=== PATIENT | male | born 1995 | race Caucasian/White ===

== ENCOUNTER 2018-07-16 07:28 | Emergency (ER) | payer MEDICAID, SELFPAY ==
[2018-07-16 07:32] VITALS: BP 163/82; PULSE 89; RESP 18; TEMP 37; O2SAT 99
--- NOTE | 2018-07-16 07:39 | DI.CT_ITS ---
SYMPTOM/DIAGNOSIS: R/O LT PERITONSILLAR ABSCESS NECK CT: The study was carried out according to the usual protocol with an intravenous administration of 100.1 ml intravenous contrast. There is some prominence of the tonsils. The left tonsil appearing somewhat larger than it's right counterpart. There is no evidence of a discrete abscess. There is no evidence of a pharyngeal or retropharyngeal mass. The larynx, epiglottis and aryepiglottic folds are normal. There is no evidence of adenopathy. No bony abnormality is apparent. The neck is flexed presumably secondary to spasm. No intrinsic bony abnormality is seen. SUMMARY: Findings which would be consistent with bilateral tonsillitis. There is no evidence of a localized mass or fluid collection and nothing specific to suggest a peritonsillar abscess.
--- NOTE | 2018-07-16 07:41 | W.ED.GENAD ---
Discharge Plan Disposition Patient Disposition: STILL A PATIENT Condition: Stable Discharge Details Chief Complaint: Sorethroat Clinical Impression: Throat pain Primary Care Provider: Miguelina Cox V ED Provider: Willy Lane Home Meds and New Rx's Prescriptions: New amoxicillin-pot clavulanate [Augmentin] 875-125 mg tablet 1 tab PO BID Qty: 14 RF: 0 Continued Suboxone 12-3 mg Film RF: 0 Discharge Instructions Additional Instructions: Your cat scan did not show any fluid collection at this time requiring drainage if you have discomfort you can take 1000mg tylenol and 600mg ibuprofen every 6 hours as needed if not better by the end of the week follow up with your primary care provider if you are unable to swallow liquids or have difficulty breathing return to the emergency department Medical Decision Making <Pradip Pacheco DO - Last Filed: 07/16/18 07:50> This is a pleasant 22-year-old male who presents for evaluation of sore throat for the last 12-18 hours. He has no fever, but does admit to chills, left-sided jaw trismus, and notable pain with swallowing. Physical exam demonstrates an enlarged left peritonsillar space, as well as bilaterally enlarged tonsils. Tonsils are not touching. Uvula is minimally deviated to the right, no signs of airway compromise though, patient is controlling secretions well, shows no evidence of significant respiratory or oropharyngeal compromise. Palpation of the slightly enlarged area demonstrates a soft but tender area. No tenseness, or significant fluctuance. Differential includes a peritonsillar abscess versus a phlegmon. We will give the patient Toradol and Tylenol here as well as Augmentin. Due to the size of the mass, and the mild deviation of the uvula we will get a CT scan to further differentiate between phlegmon and abscess. Currently the patient is hemodynamically stable. Case will be signed out to my colleague Dr. Lane. I feel that if there is no evidence of significant abscess patient can most likely be discharged home with close follow-up with ENT and his PCP. <Willy Lane MD - Last Filed: 07/16/18 09:20> Imaging Data Radiologic Study: Attestation: I personally reviewed and interpreted this imaging study as follows: Imaging: CT Scan Radiologist's impression: no abscess or phelgmon or acute emergent findings per Dr. Price HPI <Pradip Pacheco DO - Last Filed: 07/16/18 07:50> General Date/Time Provider Initiated Documentation: 07/16/18 07:39. HPI Narrative: This is a pleasant 22-year-old male with no significant past medical history except for Suboxone use who presents today for sore throat. Patient states that sore throat began last night, notably worsened this morning. He denies any fevers but does admit to chills. He does have some associated trismus, and pain notably in the left side of his throat. Does have some pain with swallowing but denies any significant difficulty swallowing. He does admit to a very mild headache, but denies any significant neck pain, neck stiffness, stiffness in the back of his head. Patient denies any symptoms of cough, chest pain, shortness of breath. He denies any IV or illicit drug use. He denies any surgeries. He denies any other complaints at this time. No other aggravating or modifying factors. Related Data Home Medications Medication Instructions Recorded Confirmed Suboxone 07/16/18 amoxicillin-pot clavulanate 1 tab PO BID #14 tab 07/16/18 [Augmentin] Previous Rx's Medication Instructions Recorded amoxicillin-pot clavulanate 1 tab PO BID #14 tab 07/16/18 [Augmentin] Allergies Allergy/AdvReac Type Severity Reaction Status Date / Time No Known Drug Allergies Allergy Unverified 07/16/18 07:41 General Stated Complaint: Sorethroat CELESTINO: 4 Review of Systems <Pradip Pacheco DO - Last Filed: 07/16/18 07:50> Review of Systems All systems reviewed & are unremarkable except as noted in HPI and below PFSH <Pradip Pacheco DO - Last Filed: 07/16/18 07:50> Medical History Depression Family History Mother No problems noted. Father Depression Sister No problems noted. Brother No problems noted. Brother No problems noted. Social History Smoking/Tobacco Use Status: Current every day Exam <Pradip Pacheco DO - Last Filed: 07/16/18 07:50> Narrative Exam Narrative: 1.Const: Well-nourished, Well-developed, appearing stated age 2.Eyes: PERRL, no conjunctival injection, and symmetrical lids. 3.ENT: Atraumatic external nose and ears. Moist MM. Neck: Symmetric, trachea midline, No thyromegaly. Posterior oropharynx demonstrates notable erythema, mild to moderate swelling in the left posterior oropharynx. Mild deviation of the uvula to the right, palpation of this area in the back left demonstrates no significant fluctuance that I can appreciate, and certainly it is not firm or tense. No significant tonsillar exudates. Tonsils are enlarged though. Mild anterior cervical lymphadenopathy. Tympanic membranes are edward and pearly. No evidence of effusion. Patient demonstrates good movement of cervical neck. There is no nuchal rigidity, no nuchal tenderness. Patient is able to flex the neck without any difficulty or significant pain. Negative Kernig's and Brudzinski sign. 4.CVS: +S1/S2, No murmurs or gallops. Peripheral pulses 2+ and equal in all extremities. Brisk capillary refill in all extremities. 5.RESP: Unlabored respiratory effort. Clear to auscultation bilaterally. No wheezes rales or rhonchi 6.GI: Soft, Nontender/Nondistended, No hepatosplenomegaly. No guarding or rebound. 7.MSK: Normocephalic/Atraumatic, Extremities w/o deformity or ttp No cyanosis or clubbing, Normal movement of all extremities 8.Skin: Warm, Dry. No rashes or lesions. 9.Neuro: post closing specialist II-XII grossly intact. Sensation grossly intact, no focal neurologic deficits. 10.Psych: (AAO) x3. Appropriate mood and affect Course <Pradip Pacheco, - Last Filed: 07/16/18 07:50> Vital Signs Temperature 37.0 C 07/16/18 07:32 Pulse 89 07/16/18 07:32 Respiratory Rate 18 07/16/18 07:32 Blood Pressure 163/82 H 07/16/18 07:32 Pulse Oximetry 99 07/16/18 07:32 Temperature 37.0 C 07/16/18 07:32 Pulse 89 07/16/18 07:32 Respiratory Rate 18 07/16/18 07:32 Respiratory Effort 07/16/18 07:39 Blood Pressure 163/82 H 07/16/18 07:32 Blood Pressure Position Sitting 07/16/18 07:32 Pulse Oximetry 99 07/16/18 07:32 Pain Level 7 07/16/18 07:32 Sign Out <Pradip Pacheco DO - Last Filed: 07/16/18 07:50> Sign Out Data: Sign Out Comment: Pending CT results Last updated by Pradip Pacheco DO at 07/16/18 07:56 Post-Handoff Eval: pt remains stable without stridor or drooling speaking in full setnences. CT per Dr. Price shows no abscess or phelgmon. He prefers f/u with pcp and advised return here if worsens
[2018-07-16] MEDS: Acetaminophen 500 MG TAB 1000 MG PO (07:46)
[2018-07-16] MEDS: Amoxicillin 875/Clav. 125 TAB PO (07:46)
[2018-07-16] MEDS: Ketorolac 30 MG/ML VIAL IVP (07:46)
[2018-07-16] MEDS: Omnipaque 350 MG/ML 100 ML BTL IJ (08:21)
[2018-07-16 09:25] VITALS: BP 148/73; PULSE 72; RESP 18; TEMP 36.7; O2SAT 98
== END 2018-07-16 09:23 | disposition still patient (30) ==
PROVIDERS: Emergency Provider Emergency Medicine; PCP Pediatrics
DX: F60.3 Borderline personality disorder (principal); R45.851 Suicidal ideations; R45.850 Homicidal ideations
CPT/HCPCS: 36415; 70491; 99285; 87081; 99284; J1885; J3490

== ENCOUNTER 2018-11-02 15:42 | Emergency (ER) | payer MEDICAID, SELFPAY ==
[2018-11-02 15:45] VITALS: BP 137/75; PULSE 61; RESP 15; TEMP 36.8; O2SAT 95
--- NOTE | 2018-11-02 16:03 | W.ED.GENAD ---
Discharge Plan Disposition Patient Disposition: HOME Condition: Improving Discharge Details Chief Complaint: RespSymp Clinical Impression: Acute bronchitis Primary Care Provider: Miguelina Cox V ED Provider: Princess Mackay Home Meds and New Rx's Prescriptions: New prednisone 50 mg tablet 50 mg PO DAILY 5 Days Qty: 5 RF: 0 doxycycline hyclate 100 mg tablet 100 mg PO BID 5 Days Qty: 10 RF: 0 Continued buprenorphine-naloxone [Suboxone] 8-2 mg Film 1 film BUCCAL DAILY RF: 0 Discharge Instructions Instructions: Acute Bronchitis (ED) Additional Instructions: Drink plenty of fluids and get plenty of rest. Use the albuterol inhaler as needed and directed for shortness of breath or wheezing. Take the steroids until finished. If your symptoms do not improve or worsen over the next 2 days, you may start the antibiotics. You will receive a call from care management regarding a follow-up appointment with a primary care doctor. Return immediately to the emergency department with any worsening or new concerning symptoms. Discharge Data Discharge Physician: Princess Mackay Medical Decision Making 23-year-old male with a history of anxiety and depression who is on Suboxone for previous narcotic drug abuse who presents with shortness of breath, cough with chest congestion, and wheezing for the past week. Denies fever, chest pain. Vitals within normal limits. Patient appears nontoxic. He is speaking in full sentences. He is noted to have nasal congestion on exam. Normal oropharynx. Scattered wheezing throughout. No accessory muscle use. No rhonchi. As patient has no fever, normal vitals, and no evidence of focal findings on lung exam, I do not see an indication for chest x-ray and patient is agreeable. Appears consistent with likely URI and bronchitis. Will give a DuoNeb and p.o. prednisone and reassess. 1625 --patient feels much better and is requesting to go home. He is declining any additional neb treatments. Patient is on Suboxone which has an interaction with Zithromax. We will send home with a prescription for doxycycline. Patient is instructed to first try the inhaler and steroids for the next few days, but if he has no relief with symptoms, to start the antibiotics. Patient also instructed that he can use [id number] decongestants to help with nasal congestion and Mucinex to help with chest congestion. Patient does not have a primary care doctor. Will place patient on care management list to arrange for follow-up appoint with a primary care doctor in 1-2 weeks for reevaluation. Patient is instructed return here at any time if worse. HPI General Date/Time Provider Initiated Documentation: 11/02/18 15:49. HPI Narrative: Patient is a 23-year-old male who presents with shortness of breath, wheezing, cough and chest congestion for the past week. Patient also admits to bilateral ear pain. He denies any known fever and states he has been eating but drinking less than usual. He denies any chest pain or sore throat. He states he has not taken any medication for his symptoms. Related Data Home Medications Medication Instructions Recorded Confirmed buprenorphine-naloxone [Suboxone] 1 film BUCCAL DAILY 11/02/18 11/02/18 doxycycline hyclate 100 mg PO BID 5 Days #10 tab 11/02/18 prednisone 50 mg PO DAILY 5 Days #5 tab 11/02/18 Previous Rx's Medication Instructions Recorded doxycycline hyclate 100 mg PO BID 5 Days #10 tab 11/02/18 prednisone 50 mg PO DAILY 5 Days #5 tab 11/02/18 Allergies Allergy/AdvReac Type Severity Reaction Status Date / Time No Known Drug Allergies Allergy Unverified 11/02/18 15:51 General Stated Complaint: RespSymp CELESTINO: 4 Review of Systems Review of Systems All systems reviewed & are unremarkable except as noted in HPI and below Constitutional Reports as per HPI, Denies chills and Denies fever(s) Eyes Denies blurry vision ENT Denies dizziness, Denies sore throat and Denies throat swelling Cardiovascular Denies chest pain and Reports dyspnea Respiratory Reports cough and Reports dyspnea Gastrointestinal Denies abdominal pain, Denies diarrhea and Denies vomiting Genitourinary Denies hematuria and Denies dysuria Musculoskeletal Denies back pain and Denies numbness Integumentary/Breasts Denies lesions and Denies rash Neurologic Denies dizziness, Denies focal weakness and Denies numbness Allergic/Immunologic Denies throat swelling [facility] Medical History Anxiety (Chronic) Depression Surgical History No significant past surgical history (Acute) Family History Mother No problems noted. Father Depression Sister No problems noted. Brother No problems noted. Brother No problems noted. Social History Smoking/Tobacco Use Status: Current every day Tobacco Type: e-cigarettes Alcohol Intake: current Alcohol Intake frequency: a few times a month Drug use: Current Sobriety Substance use type: does not use, former substance user and IV drugs Do you feel safe at home: Yes Do you feel safe in your relationship?: Yes Exam Const General: cooperative and healthy appearing Orientation: alert and awake HENMT Head: normal to inspection Ears: hearing grossly normal bilaterally, external ears normal and TM's normal bilaterally General nose exam: external nose normal and other (sounds congested with ) Face and sinus: normal facial exam Mouth: oral mucosae normal Teeth and gingiva: dentition normal Throat: posterior oropharynx normal Eyes General: appearance normal, both eyes and all related structures Eyelids: eyelids normal Pupils: PERRL EOM: EOM intact bilaterally Neck Neck: normal visual inspection Lymphatic: no lymphadenopathy noted Chest Chest: normal inspection of the chest Resp Effort & Inspection: normal respiratory effort and able to speak in complete sentences Auscultation: wheezes scattered wheezes Cardio Rate: regular rate Rhythm: regular rhythm GI Inspection: normal to inspection Palpation: soft, not firm, no guarding, no hepatosplenomegaly, no masses and nontender Auscultation: normal bowel sounds Skin General skin exam: no rashes or lesions noted Neuro General: alert and awake Cognition: normal cognition Speech: speech normal Gait: normal gait Motor: muscle tone normal throughout Sensory Exam: no sensory deficits noted Extrem General: normal to inspection, full ROM and no edema Psych Appearance: grossly normal Mental Status: mental status grossly normal Speech and Movement: speech and movement normal Affect: normal affect Thought Process: normal Course Vital Signs Temperature 98.2 F 11/02/18 15:45 Pulse 61 11/02/18 15:45 Respiratory Rate 15 11/02/18 15:45 Blood Pressure 137/75 11/02/18 15:45 Pulse Oximetry 95 11/02/18 15:45 Temperature 98.2 F 11/02/18 15:45 Temperature Source Temporal Artery Scan 11/02/18 15:45 Pulse 61 11/02/18 15:45 Respiratory Rate 15 11/02/18 15:45 Respiratory Effort 11/02/18 15:49 Respiratory Depth Normal 11/02/18 15:49 Blood Pressure 137/75 11/02/18 15:45 Blood Pressure Position Sitting 11/02/18 15:45 Pulse Oximetry 95 11/02/18 15:45 Oxygen Delivery Method Room Air 11/02/18 15:45 Oxygen Flow Rate 0 11/02/18 15:45 Pain Level 4 11/02/18 15:45
[2018-11-02 16:06] VITALS: RESP 4
[2018-11-02] MEDS: Albuterol/Ipratropium 3 ML UPD VIAL UPD (16:06)
[2018-11-02] MEDS: predniSONE 20 MG TAB 60 MG PO (16:06)
[2018-11-02 16:26] VITALS: PULSE 61; O2SAT 97
[2018-11-02 16:27] VITALS: RESP 4
[2018-11-02] MEDS: Albuterol HFA 8 GM 60 PUFF INH IH (16:30)
[2018-11-02] MEDS: Inhaler, Assist Device 1 EACH MC (16:30)
[2018-11-02 16:44] VITALS: BP 137/75; PULSE 61; RESP 15; O2SAT 97
--- NOTE | 2018-11-04 08:55 | PDOC.ERCMPRO ---
Care Management Progress Note 11/04-Dr. Mackay requested assistance with a PCP (Brooke) f/u in 1-2 weeks for bronchitis. Faxed referral to [facility] this am. Also requested that they assist Alfredo with an adult PCP.
== END 2018-11-02 16:50 | disposition home or self-care (01) ==
PROVIDERS: Emergency Provider Physician Assistant; PCP Pediatrics
DX: J20.9 Acute bronchitis, unspecified (principal)
CPT/HCPCS: 94640; 99283; J7512; J7620

== ENCOUNTER 2019-07-20 19:32 | Emergency (ER) | payer MEDICAID, SELFPAY ==
[2019-07-20 19:36] VITALS: BP 167/70; PULSE 72; RESP 20; TEMP 36.6; O2SAT 95
--- NOTE | 2019-07-20 19:49 | ED.GENADUL_ITS ---
Discharge Plan Disposition Patient Disposition: HOME Condition: Improving Discharge Details Chief Complaint: RespSymp Clinical Impression: Pneumonia involving left lung, Exacerbation of reactive airway disease Primary Care Provider: Miguelina Cox V ED Provider: Mike Andrade Home Meds and New Rx's Prescriptions: New prednisone 20 mg tablet 40 mg PO DAILY 5 Days Qty: 10 RF: 0 amoxicillin-pot clavulanate 875-125 mg tablet 1 tab PO BID 10 Days Qty: 20 RF: 0 Continued buprenorphine-naloxone [Suboxone] 8-2 mg Film 1 film BUCCAL DAILY RF: 0 Discharge Instructions Additional Instructions: Please continue efforts to decrease tobacco use. No further use of vape pens. May use provided inhaler 1 to 2 puffs every 4 hours as needed during times of illness. Return if you feel you need to use the inhaler more often or feeling short of breath. We will ask our care managers to assist you in obtaining adult primary care. Take antibiotics as prescribed. I recommend you take [id number] live culture yogurt or a probiotic once daily in the middle of the day while taking antibiotic. Return for recurrent difficulty breathing, persistent high fevers, shortness of breath, or any other acute concerns. Medical Decision Making 23-year-old male smoker with a history of crack cocaine use presents with 3 to 4 weeks of cough, congestion, production of green sputum that was tinged with blood today. He states he feels short of breath. He arrives with normal temp, speaking in full sentences, 95% oxygenation. He is quite wheezy on exam. Differential diagnosis includes bronchitis, pneumonia, exacerbation of underlying reactive airway disease, must exclude PE. Laboratories obtained and reveal a white blood cell count of 9, hematocrit 44, platelets 215. D-dimer negative at 170. Chemistries unremarkable. Chest x-ray with L lingular infiltrate. Patient improving and continues with normal oxygenation. His bronchospasm is significant enough that I do feel he will benefit from a burst of systemic steroids. Additionally, he will require a course of antibiotics for left pneumonia. Discussed with him home management including the use of albuterol as needed during times of illness. He is asked for referral to establish adult outpatient primary care. He is stable and improving, appropriate for outpatient management with a course of Augmentin. HPI General Mode of arrival: ambulatory . Date/Time Provider Initiated Documentation: 07/20/19 19:38 . Limitations to Documentation: no limitations . Information obtained by: patient . History of Present Illness 23 year old M presents to the emergency department with the chief complaint of 4 weeks of cough, production of sputum, hemoptysis today, described as moderate, and is localized to the chest. Patient reports no radiation. Patient started expe riencing this week(s) and it has been intermittent. No relieving factors improve symptom(s), No exacerbating factors reported . Patient notes cough, fever/chills and shortness of breath. Patient did receive the following treatments prior to arrival, none Related Data Home Medications Medication Instructions Recorded Confirmed buprenorphine-naloxone [Suboxone] 1 film BUCCAL DAILY 11/02/18 07/20/19 amoxicillin-pot clavulanate 1 tab PO BID 10 Days #20 tab 07/20/19 prednisone 40 mg PO DAILY 5 Days #10 tab 07/20/19 Previous Rx's Medication Instructions Recorded amoxicillin-pot clavulanate 1 tab PO BID 10 Days #20 tab 07/20/19 prednisone 40 mg PO DAILY 5 Days #10 tab 07/20/19 Allergies Allergy/AdvReac Type Severity Reaction Status Date / Time No Known Drug Allergies Allergy Unverified 07/20/19 19:41 General Stated Complaint: RespSymp CELESTINO: 4 Review of Systems Narrative: Patient admits to tobacco use daily, some vaping, intermittent crack cocaine use. 6 systems reviewed and otherwise negative. COUNT INCLUDES THE [facility] Medical History Anxiety (Chronic) Depression 2013 Family History Mother No problems noted. Father Depression on med following divorce Sister No problems noted. Brother No problems noted. Brother No problems noted. Social History Smoking/Tobacco Use Status: Current every day Tobacco Type: e-cigarettes Alcohol Intake: current Alcohol Intake frequency: a few times a week Drug use: Occasionally Substance use type: does not use, former substance user, marijuana, crack/cocaine and heroin Do you feel safe at home: Yes Do you feel safe in your relationship?: Yes Exam Narrative Exam Narrative: GEN: awake, alert, oriented 3. Pleasant, well groomed, interactive. HEAD: Normocephalic, atraumatic ENT: Mucous membranes moist, oropharynx unremarkable, External ear exam unremarkable EYES: PERRL, EOMI NECK: Full ROM, no BRENDA, no menigismus CHEST/RESP: Nontender, bilateral end expiratory wheeze present CARDIOVASCULAR: RRR, no murmur, rub jean-pierre. 2+ Rad pulse bilateral ABDOMEN: Soft, nontender, no mass. +Bowel sounds EXT: Full ROM, no edema, no rash Neuro: Grossly normal neurologic exam, conversant, interactive. Psych: Speech fluent, thoughts congruent, affect normal Course Vital Signs Vital signs: Vital Signs Temperature 36.6 C 07/20/19 19:36 Pulse 72 07/20/19 19:36 Respiratory Rate 20 07/20/19 19:36 Blood Pressure 167/70 H 07/20/19 19:36 Pulse Oximetry 95 07/20/19 19:36 Temperature 36.6 C 07/20/19 19:36 Temperature Source Skin 07/20/19 19:36 Pulse 72 07/20/19 19:36 Respiratory Rate 20 07/20/19 19:36 Respiratory Effort Non-Labored 07/20/19 19:39 Respiratory Depth Normal 07/20/19 19:39 Blood Pressure 167/70 H 07/20/19 19:36 Pulse Oximetry 95 07/20/19 19:36 Oxygen Delivery Method Room Air 07/20/19 19:36 Oxygen Flow Rate 0 07/20/19 19:36 Pain Level 5 07/20/19 19:36
[2019-07-20 20:07] LABS: Abs Immature Grans 0.01 k/cumm (0.0-0.09); Absolute Basophil Count 0.07 k/cumm (0.0-0.2); Absolute Eosinophil Count 1.18 k/cumm (0.0-0.7); Absolute Lymphocyte Count 2.51 k/cumm (1.2-3.4); Absolute Monocyte Count 0.69 k/cumm (0.11-0.7); Absolute Neutrophil Count 5.17 k/cumm (1.2-6.7); Basophils % 0.7; Eosinophils % 12.3; HCT 44.8 % (40.0-50.0); HGB 15.6 g/dL (13.5-17.5); Immature Grans % 0.1; Lymphocytes % 26.1; Mean Corp. HGB Concentration 34.8 g/dL (32.0-36.0); Mean Corpuscular Hemoglobin 30.3 pg (27.0-33.0); Mean Platelet Volume 10.8 fL (8.0-11.0); Monocytes % 7.2; Neutrophils % 53.6; Platelet Count 215 x1000/uL (130-400); RBC 5.15 m/cumm (4.50-6.00); RBC Distribution Width 12.7 % (11.8-14.1); White Blood Cell Count 9.63 k/cumm (4.4-10.8)
[2019-07-20] MEDS: methylPREDNISolone SUCC 125 MG VIAL IVP (20:08)
[2019-07-20] MEDS: Albuterol/Ipratropium 3 ML UPD VIAL UPD (20:08)
[2019-07-20] MEDS: Normal Saline 1,000 ML 150 ML IV (20:08)
[2019-07-20 20:18] LABS: ALT 21 U/L (16-63); AST 19 U/L (15-37); Alkaline Phosphatase 82 U/L (46-116); BUN 14 mg/dL (7-18); Bilirubin, Total 0.3 mg/dL (0.2-1.0); CREATININE 0.94 mg/dL (0.70-1.30); Calcium 9.1 mg/dL (8.5-10.1); Chloride 103 mmol/L (98-107); Glucose 99 mg/dL (74-106); Potassium 3.9 mmol/L (3.5-5.1); Sodium 141 mmol/L (136-145); Total Protein 7.4 g/dL (6.4-8.2)
[2019-07-20 20:36] LABS: D-Dimer 170 ng/mlFEU (<500)
--- NOTE | 2019-07-20 20:53 | DI.RAD_ITS ---
EXAM: XR CHEST 2V PA LATERAL INDICATION: Cough, SOB, smoker. COMPARISON: CHEST 2 VIEWS PA,LAT from 01/19/2018 TECHNIQUE: 2D digital imaging was performed. FINDINGS: Heart size and pulmonary vasculature are within normal limits. There is a left lingular opacity susp icious for pneumonia. The lungs are otherwise clear. No effusion or pneumothorax is identified. Th e bones appear intact. IMPRESSION: Left lingular infiltrate which may represent atelectasis or pneumonia.
--- NOTE | 2019-07-20 21:05 | DI.VRAD_ITS ---
PROCEDURE INFORMATION: Exam: XR Chest, 2 Views Exam date and time: 07/20/2019 8:58 PM Age: 23 years old Clinical indication: Cough and shortness of breath; Smoker's cough; Patient HX: Cough for 1 week, SOB, smoker TECHNIQUE: Imaging protocol: XR of the chest Views: 2 views. COMPARISON: CR CHEST 2 VIEWS PA,LAT 01/19/2018 12:23 AM FINDINGS: Lungs: Subsegmental size area of consolidation in the left lingula which may represent an early infiltrate or atelectasis. This was not present on a prior study 01/19/2018. Pleural space: Unremarkable. No pleural effusion. No pneumothorax. Heart/Mediastinum: Unremarkable. No cardiomegaly. Bones/joints: Unremarkable. IMPRESSION: Subsegmental consolidation suggested left lingular region which may represent atelectasis or mild infiltrate. Dictated and Authenticated by: Castillo Hoskins MD. Ordering:JESSICA Mckeon MD
[2019-07-20 21:35] VITALS: BP 136/67; PULSE 65; RESP 16; O2SAT 97
[2019-07-20] MEDS: Albuterol HFA 8 GM 60 PUFF INH IH (21:40)
--- NOTE | 2019-07-20 21:42 | NUR.NOTE ---
Nursing Note: unable to scan or manually enter augmentin. Sent home with patient
== END 2019-07-20 21:35 | disposition home or self-care (01) ==
PROVIDERS: Emergency Provider Emergency Medicine; PCP Pediatrics
DX: J44.0 Chronic obstructive pulmonary disease with (acute) lower respiratory infection (principal); J18.9 Pneumonia, unspecified organism; J45.901 Unspecified asthma with (acute) exacerbation; F17.210 Nicotine dependence, cigarettes, uncomplicated
CPT/HCPCS: 36415; 80053; 94640; 96361; 96374; 99284; 71046; 85025; 85379; J2930; J7620

== ENCOUNTER 2019-11-01 16:00 | Emergency (ER) | payer MEDICAID, SELFPAY ==
[2019-11-01] VITALS (8 sets, daily range): BP systolic 131–173; BP diastolic 59–94; PULSE 72–120; RESP 4–21; TEMP 36.6–37.8; O2SAT 94–100
--- NOTE | 2019-11-01 16:02 | W.ED.GENAD ---
Discharge Plan Disposition Patient Disposition: HOME Condition: Improving Discharge Details Chief Complaint: SOB Clinical Impression: Pneumonia, Acute bronchitis due to infection Primary Care Provider: Miguelina Cox V ED Provider: Princess Mackay Home Meds and New Rx's Prescriptions: New amoxicillin-pot clavulanate [Augmentin] 875-125 mg tablet 1 tab PO BID 7 Days Qty: 14 RF: 0 prednisone 20 mg tablet See Rx Instructions .ROUTE .COMPLEX Qty: 12 RF: 0 Continued buprenorphine-naloxone [Suboxone] 8-2 mg Film 1 film BUCCAL DAILY RF: 0 Discharge Instructions Instructions: Acute Bronchitis (ED), Pneumonia (ED) Additional Instructions: Drink plenty of fluids and get plenty of rest. Take the antibiotics and steroids until finished. Use the albuterol inhaler as needed and directed for shortness of breath or wheezing. You will receive a call from the hospital regarding appointment time for COVID 19 testing at the testing tent at [facility] on Sunday. Return to the emergency department with any worsening or new concerning symptoms such as fever, worsening shortness of breath, chest pain or any other concerns. Discharge Data Discharge Physician: Princess Mackay Medical Decision Making 1610 -- 24 yo M w/ a h/o anxiety and depression, tobacco smoking and crack cocaine and heroin uise with cough with green sputum and shortness of breath with wheezing for the past few days. Denies any fever. Has back pain worse with deep breath. EKG done on arrival and notes a rate of 83, sinus and no acute ST ischemic changes. BP hypertensive, HR mildly tachycardic. Afebrile. Pt appears nontoxic. O2 sat 97% on RA. Pt has diffuse wheezing throughout. Differential diagnosis includes acute bronchitis, pneumonia, PE. Will give a dose of albuterol, steroids, check screening labs and CT chest. 1715 -- labs and imaging reviewed. WBC mildly elevated to 11.29. CT chest notes scattered b/l predominately central ground glass opacities, differential includes atypical/viral infection, interstitial lung dz such as eosinophilic pneumonia, bronchiolitis or desquamative interstitial pneumonia in setting of smoke exposure. Pt reassessed -- he states he feels better. Diffuse wheezing still throughout. O2 sat 99% on room air. Will give 2 duonebs and reassess. As ground glass opacities are central and not peripheral as seen most likely in COVID, and pt has no report or documented fever with normal O2 saturation, do not suspect COVID, but will refer for outpatient COVID 19 testing on Sunday and treat with antibiotics. Repeat EKG was done due to questionable ST abnormalities noted on monitor but this was not evident on repeat EKG and patient had no report of chest pain. 1844 --patient reassessed --patient feels better. Oxygen saturation 99% on room air. He still has diffuse wheezing but this is improved and he has no signs of respiratory distress. He is speaking in full sentences. He is declining any further neb treatments and is requesting to go home. Patient placed on care management list to arrange for follow-up appointment with the primary care doctor within the next week. Usual and customary return precautions given prior to discharge. Medical Records Medical records reviewed: Yes I reviewed the patient's medical records. Imaging Data Radiologic Study: Radiologist's impression: CT Angiography Chest With Contrast Exam date and time: 11/01/2019 4:39 PM Age: 24 years old Clinical indication: Other: SOB TECHNIQUE: Imaging protocol: Computed tomographic angiography of the chest with intravenous contrast. 3D rendering: MIP and/or 3D reconstructed images were created by the technologist. Radiation optimization: All CT scans at this facility use at least one of these dose optimization techniques: automated exposure control; mA and/or kV adjustment per patient size (includes targeted exams where dose is matched to clinical indication); or iterative reconstruction. Contrast material: OMNIPAQUE 350; Contrast volume: 81 ml; Contrast route: IV; COMPARISON: CR XR CHEST 2V PA LATERAL 07/20/2019 8:53 PM FINDINGS: Pulmonary arteries: No pulmonary embolism to the level of the segmental arteries. Aorta: The aorta is normal. Lungs: Scattered bilateral, predominantly central, small ground-glass opacities most pronounced in the left apex and right lower lobe. A small portion of the lung bases extend beyond the field of view. Pleural space: Unremarkable. No pneumothorax. No pleural effusion. Heart: Unremarkable. No cardiomegaly. No pericardial effusion. Lymph nodes: Unremarkable. No enlarged lymph nodes. Bones/joints: Unremarkable. No acute fracture. Soft tissues: Gynecomastia. IMPRESSION: Scattered bilateral, predominantly central small ground-glass opacities. Broad differential includes but is not limited to atypical/viral infection and interstitial lung disease such as eosinophilic pneumonia or respiratory bronchiolitis/desquamitive interstitial pneumonia in the setting of reported smoke exposure. Lab Data Lab results reviewed: Yes I reviewed the patient's lab results. ECG Data Attestation: I personally reviewed and interpreted this ECG (s) as follows: Interpretation: #1 - rate of 83, sinus, less than 1mm ST depression and T wave inversion in lead III. No acute ST elevation. FL 126. QTc 439. QRS 110. #2 - rate of 66, sinus, no acute ST elevation or depression. FL 146. QTc 423. QRS 110. HPI General Mode of arrival: ambulatory. Date/Time Provider Initiated Documentation: 11/01/19 16:00. Limitations to Documentation: no limitations. Information obtained by: patient. HPI Narrative: Pt is a 24yo M who presents to the ED w/ a c/o cough with green sputum for the past few days and shortness of breath with wheezing since yesterday. Pt admits to smoking crack a few days ago and then snorting heroin yesterday. Pt states the shortness of breath is worse with exertion. Pt admits to loss of appetite today. He denies any known fever, sore throat, ear pain, chest pain, vomiting or diarrhea. Pt states he also has back pain that is worse with taking a deep breath. Related Data Home Medications Medication Instructions Recorded Confirmed buprenorphine-naloxone [Suboxone] 1 film BUCCAL DAILY 11/02/18 11/01/19 amoxicillin-pot clavulanate 1 tab PO BID 7 Days #14 tab 11/01/19 [Augmentin] prednisone See Rx Instructions .ROUTE 11/01/19 .COMPLEX #12 tab Previous Rx's Medication Instructions Recorded amoxicillin-pot clavulanate 1 tab PO BID 7 Days #14 tab 11/01/19 [Augmentin] prednisone See Rx Instructions .ROUTE 11/01/19 .COMPLEX #12 tab Allergies Allergy/AdvReac Type Severity Reaction Status Date / Time No Known Drug Allergies Allergy Unverified 11/01/19 17:32 General CELESTINO: 4 Review of Systems All systems reviewed & are unremarkable except as noted in HPI and below Constitutional Constitutional: Reports as per HPI, Denies chills and Denies fever(s) Eyes Eyes: Denies blurry vision ENT Ears, Nose, Mouth, and Throat: Denies dizziness, Denies sore throat and Denies throat swelling Cardiovascular Cardiovascular: Denies chest pain and Reports dyspnea Respiratory Respiratory: Reports cough and Reports dyspnea Gastrointestinal Gastrointestinal: Denies abdominal pain, Denies diarrhea and Denies vomiting Genitourinary Genitourinary: Denies hematuria and Denies dysuria Musculoskeletal Musculoskeletal: Reports back pain and Denies numbness Integumentary/Breasts Skin/Breast: Denies lesions and Denies rash Neurologic Neurologic: Denies dizziness, Denies localized weakness and Denies numbness Allergic/Immunologic Allergic/Immunologic: Denies throat swelling [facility] Social History Smoking/Tobacco Use Status: Current every day Tobacco Type: e-cigarettes Alcohol Intake: current Alcohol Intake frequency: a few times a week Drug use: Occasionally Substance use type: does not use, former substance user, marijuana, crack/cocaine and heroin Do you feel safe at home: Yes Do you feel safe in your relationship?: Yes Exam Const General: cooperative and no acute distress Orientation: alert, awake and oriented x3 HENMT Head: normal to inspection Ears: hearing grossly normal bilaterally, external ears normal and TM's normal bilaterally General nose exam: external nose normal Face and sinus: normal facial exam Mouth: oral mucosae normal Teeth and gingiva: dentition normal Throat: posterior oropharynx normal Eyes General: appearance normal, both eyes and all related structures Eyelids: eyelids normal Pupils: PERRL EOM: EOM intact bilaterally Neck Neck: normal visual inspection Lymphatic: no lymphadenopathy noted Chest Chest: normal inspection of the chest Resp Effort & Inspection: normal respiratory effort and able to speak in complete sentences Auscultation: wheezes lower bilaterally and upper bilaterally Cardio Rate: regular rate Rhythm: regular rhythm GI Inspection: normal to inspection Palpation: soft, not firm, no guarding, no hepatosplenomegaly, no masses and nontender Auscultation: normal bowel sounds Skin General skin exam: no rashes or lesions noted Neuro General: patient alert and patient awake Cognition: normal cognition Speech: speech normal Gait: normal gait Motor: muscle tone normal throughout Sensory Exam: no sensory deficits noted Extrem General: normal to inspection, full ROM and capillary refill normal Psych Appearance: grossly normal Mental Status: mental status grossly normal Speech and Movement: speech and movement normal Affect: normal affect Thought Process: normal
[2019-11-01 16:28] LABS: Abs Immature Grans 0.02 k/cumm (0.0-0.09); Absolute Basophil Count 0.07 k/cumm (0.0-0.2); Absolute Eosinophil Count 0.77 k/cumm (0.0-0.7); Absolute Lymphocyte Count 1.96 k/cumm (1.2-3.4); Absolute Monocyte Count 0.84 k/cumm (0.11-0.7); Absolute Neutrophil Count 7.63 k/cumm (1.2-6.7); Basophils % 0.6; Eosinophils % 6.8; HCT 48.6 % (40.0-50.0); Immature Grans % 0.2 %; Lymphocytes % 17.4; Mean Corpuscular Hemoglobin 29.8 pg (27.0-33.0); Mean Corpuscular Volume 85.1 fL (80-95); Mean Platelet Volume 10.9 fL (8.0-11.0); Monocytes % 7.4; Neutrophils % 67.6; Platelet Count 219 x1000/uL (130-400); RBC 5.71 m/cumm (4.50-6.00); RBC Distribution Width 13.3 % (11.8-14.1); White Blood Cell Count 11.29 k/cumm (4.4-10.8)
[2019-11-01] MEDS: Omnipaque 350 MG/ML 100 ML BTL IJ (16:36)
[2019-11-01] MEDS: Normal Saline - Diluent 50 ML VIAL IV (16:37)
[2019-11-01 16:47] LABS: ALT 26 U/L (16-63); AST 18 U/L (15-37); Albumin 4.4 g/dL (3.4-5.0); Alkaline Phosphatase 77 U/L (46-116); Anion Gap 10.4 mmol/L (3-11); BUN 14 mg/dL (7-18); Bilirubin, Total 0.7 mg/dL (0.2-1.0); CO2 28.6 mmol/L (21.0-32.0); CREATININE 0.89 mg/dL (0.70-1.30); Calcium 9.4 mg/dL (8.5-10.1); Chloride 101 mmol/L (98-107); Glucose 103 mg/dL (74-106); Potassium 3.9 mmol/L (3.5-5.1); Sodium 140 mmol/L (136-145); Total Protein 8.4 g/dL (6.4-8.2)
--- NOTE | 2019-11-01 16:50 | DI.CT_ITS ---
EXAM: CT CHEST PE CTA CLINICAL HISTORY: back pain with deep breath, cough, sob. TECHNIQUE: Imaging Protocol: Axial CT angiography was performed with multi-slice acquisition and mu lti-planar and/or 3D reconstructions. CONTRAST MATERIAL: Intravenous: Omnipaque 350 Contrast volume:81 mL COMPARISON: No exams were available for comparison FINDINGS: Pulmonary Arteries: No evidence of filling defect to suggest pulmonary emboli. Tracheobronchial tree: Patent where visualized. Mediastinum and K[place]um: No dominant adenopathy or fluid collection. Pulmonary parenchyma: Small ground-glass opacities scattered predominantly in the left upper lobe and right lower lobe. No architectural distortion. Pleura: No effusion or pneumothorax. Heart: The heart is not dilated. No coronary artery calcifications are seen. No pericardial effusion Aorta: Thoracic aorta non-dilated. No evidence of dissection Upper abdomen: Unremarkable. Bones: Normal. Soft tissues: Bilateral gynecomastia. IMPRESSION: 1. No evidence of pulmonary embolism, thoracic aortic dissection or aneurysm. 2. Bilateral ground-glass opacities. The findings are nonspecific. The differential includes acute atypical or viral infection or acute or chronic interstitial disease among other etiologies. Please correlate clinically. DATA REPOSITORY: All CT scans at this facility are submitted to the National Radiology Data Registry (NRDR) Dose Index Registry (DIR) with the [employer] (ACR). RADIATION OPTIMIZATION: All CT scans at this facility use at least one of these dose optimization te chniques: automated exposure control; mA and/or kV adjustment per patient size (includes targeted exa ms where dose is matched to clinical indication); or iterative reconstruction.
[2019-11-01] MEDS: methylPREDNISolone SUCC 125 MG VIAL IVP (16:57)
[2019-11-01] MEDS: Albuterol/Ipratropium 3 ML UPD VIAL UPD (16:57)
[2019-11-01] MEDS: Normal Saline 1,000 ML 1000 ML IV (16:58)
--- NOTE | 2019-11-01 17:19 | DI.VRAD_ITS ---
PROCEDURE INFORMATION: Exam: CT Angiography Chest With Contrast Exam date and time: 11/01/2019 4:39 PM Age: 24 years old Clinical indication: Other: SOB TECHNIQUE: Imaging protocol: Computed tomographic angiography of the chest with intravenous contrast. 3D rendering: MIP and/or 3D reconstructed images were created by the technologist. Radiation optimization: All CT scans at this facility use at least one of these dose optimization techniques: automated exposure control; mA and/or kV adjustment per patient size (includes targeted exams where dose is matched to clinical indication); or iterative reconstruction. Contrast material: OMNIPAQUE 350; Contrast volume: 81 ml; Contrast route: IV; COMPARISON: CR XR CHEST 2V PA LATERAL 07/20/2019 8:53 PM FINDINGS: Pulmonary arteries: No pulmonary embolism to the level of the segmental arteries. Aorta: The aorta is normal. Lungs: Scattered bilateral, predominantly central, small ground-glass opacities most pronounced in the left apex and right lower lobe. A small portion of the lung bases extend beyond the field of view. Pleural space: Unremarkable. No pneumothorax. No pleural effusion. Heart: Unremarkable. No cardiomegaly. No pericardial effusion. Lymph nodes: Unremarkable. No enlarged lymph nodes. Bones/joints: Unremarkable. No acute fracture. Soft tissues: Gynecomastia. IMPRESSION: Scattered bilateral, predominantly central small ground-glass opacities. Broad differential includes but is not limited to atypical/viral infection and interstitial lung disease such as eosinophilic pneumonia or respiratory bronchiolitis/desquamitive interstitial pneumonia in the setting of reported smoke exposure. Findings discussed with Princess Mackay MD. by Xander Whittington MD. of radiology at 11/01/2019 5:16 PM EDT Dictated and Authenticated by: Xander Whittington MD. Ordering:KRYSTAL Sánchez MD
[2019-11-01] MEDS: Albuterol/Ipratropium 3 ML UPD VIAL (17:21)
[2019-11-01 18:24] LABS: Troponin I < 0.05 ng/Ml (<0.06)
[2019-11-01] MEDS: Normal Saline 500 ML IV (18:30)
[2019-11-01] MEDS: Albuterol HFA 8 GM 60 PUFF INH IH (18:35)
[2019-11-01] MEDS: Amoxicillin 875/Clav. 125 TAB PO (18:35)
[2019-11-01] MEDS: Amox. 875/Clav. 125, 2 TABS/BTL 1 TAB PO (18:43)
--- NOTE | 2019-11-02 03:46 | NUR.NOTE ---
REFERRAL FAXED TO PATIENT PCP FOR FOLLOW UP CARE Nursing Note:
--- NOTE | 2019-11-02 21:54 | NUR.NOTE ---
Nursing Note: REFERRAL FAXED TO PCP FOR FOLLOW UP CARE
== END 2019-11-01 18:55 | disposition home or self-care (01) ==
PROVIDERS: Emergency Provider Physician Assistant; PCP Pediatrics
DX: J18.8 Other pneumonia, unspecified organism (principal); J20.8 Acute bronchitis due to other specified organisms; F14.90 Cocaine use, unspecified, uncomplicated
CPT/HCPCS: 71275; 80053; 93005; 94640; 96361; 96374; 99285; 84484; 85025; 93010; 99284; J2930; J3490; J7620

== ENCOUNTER 2019-11-03 08:45 | Outpatient (CLI) | payer MEDICAID, SELFPAY ==
[2019-11-05 23:11] LABS: SARS-CoV-2 RNA Undetected (Undetected); SARS-CoV-2 Specimen Source Nasopharynx
== END 2019-11-03 09:05 ==
PROVIDERS: PCP Pediatrics; Visit Provider Physician Assistant
DX: Z11.59 Encounter for screening for other viral diseases (principal)
CPT/HCPCS: U0003

== ENCOUNTER 2020-01-26 21:15 | Emergency (ER) | payer MEDICAID, SELFPAY ==
[2020-01-26] VITALS (20 sets, daily range): BP systolic 121–156; BP diastolic 53–86; PULSE 63–106; RESP 4–28; TEMP 37.1; O2SAT 90–99
[2020-01-26] MEDS: Albuterol/Ipratropium 3 ML UPD VIAL (21:15)
--- NOTE | 2020-01-26 21:45 | DI.RAD_ITS ---
EXAM: XR PORTABLE CHEST AP CLINICAL HISTORY: cough/sob TECHNIQUE: 2D digital imaging was performed. COMPARISON: No exams were available for comparison FINDINGS: MEDIASTINUM: Normal. HEART: Normal. PULMONARY VASCULATURE: Normal. LUNGS: Mild peribronchial thickening. No focal consolidation. The lungs appear hyperinflated sugges ting underlying COPD. PLEURAL SPACE: No pleural effusion or pneumothorax. BONE:Normal. OTHER FINDINGS:Normal. IMPRESSION: Mild peribronchial thickening which may represent an infectious or inflammatory process. DATA REPOSITORY: RADIATION DOSE DELIVERED:
[2020-01-26] MEDS: Albuterol 2.5 MG/3 ML INH SOLN VIAL UPD (21:48)
[2020-01-26] MEDS: methylPREDNISolone SUCC 125 MG VIAL IVP (21:50)
[2020-01-26 22:04] LABS: Abs Immature Grans 0.01 k/cumm (0.0-0.09); Absolute Basophil Count 0.13 k/cumm (0.0-0.2); Absolute Eosinophil Count 1.57 k/cumm (0.0-0.7); Absolute Monocyte Count 0.78 k/cumm (0.11-0.7); Absolute Neutrophil Count 5.12 k/cumm (1.2-6.7); Basophils % 1.4; Eosinophils % 16.3; HCT 40.8 % (40.0-50.0); HGB 13.9 g/dL (13.5-17.5); Immature Grans % 0.1 %; Lymphocytes % 20.8; Mean Corp. HGB Concentration 34.1 g/dL (32.0-36.0); Mean Corpuscular Hemoglobin 29.8 pg (27.0-33.0); Mean Corpuscular Volume 87.6 fL (80-95); Mean Platelet Volume 10.9 fL (8.0-11.0); Monocytes % 8.1; Neutrophils % 53.3; Platelet Count 231 x1000/uL (130-400); RBC 4.66 m/cumm (4.50-6.00); RBC Distribution Width 12.9 % (11.8-14.1); White Blood Cell Count 9.61 k/cumm (4.4-10.8)
--- NOTE | 2020-01-26 22:04 | ED.GENADUL_ITS ---
Discharge Plan Disposition Patient Disposition: HOME Condition: Stable Discharge Details Chief Complaint: SOB Clinical Impression: Bronchitis Primary Care Provider: Miguelina Cox V ED Provider: Mike Andrade Home Meds and New Rx's Prescriptions: New prednisone 20 mg tablet 60 mg PO DAILY 5 Days Qty: 15 RF: 0 No Action buprenorphine-naloxone [Suboxone] 8-2 mg Film 1 film BUCCAL DAILY RF: 0 Discharge Instructions Instructions: Acute Bronchitis (ED) Additional Instructions: Prednisone and albuterol as directed. Quit smoking. I have set you up for Covid testing tomorrow. I have also placed you on the care management list to help expedite outpatient primary care follow-up. Please watch for new or worsening symptoms and return to the ER for any concerns Stand Alone Forms: POSITIVE COVID-19/TO BE TESTED Discharge Data Discharge Date/Time-TO BE ENTERED AT DEPARTURE: 01/26/20 22:55 Medical Decision Making <DON Dover - Last Filed: 01/27/20 08:31> 24-year-old gentleman with chronic cough over the past couple of months worse over the past 24-48 hours after his albuterol inhaler ran out. He denies any productive sputum. Denies fever. He presents with mild tachycardia and sats of 90, diffuse wheezing. Differential includes but not exclusive to asthma, bronchitis, pneumonia, COVID. Extremely low suspicion for PE. Will obtain IV access, give IV Solu-Medrol, DuoNeb, albuterol neb, obtain chest x-ray, CBC, CMP. Reevaluation patient was just reaching up his albuterol neb. Wheezing was scattered throughout but much improved. O2 sats currently 98%. No longer with any tachypnea. Patient subjectively reports feeling improved. C of 9.61. Chest x-ray was read by virtual radiology as mild peribronchial thickening, likely infectious or inflammatory in etiology. Given his lack of sputum, fever, elevated white count, likely inflammatory in nature. Do not believe antibiotics are prudent. CMP resulted, no emergent process. I will write for the patient to have a albuterol inhaler take-home this evening and will provide a steroid burst dose for the patient. I have also placed him on the care management list to help expedite outpatient care. Care will be signed out to Dr. Andrade with assumption that patient continues to improve, needs to be reassessed, and final disposition made. I discussed this plan with patient he feels as though she will be able to go home this evening. I have set him up for COVID testing tomorrow. Medical Records Medical records reviewed: Yes I reviewed the patient's medical records. Lab Data Lab results reviewed: Yes I reviewed the patient's lab results. Lab results narrative: Laboratory Tests Range/Units 01/26/20 01/26/20 21:45 21:45 WBC (4.4-10.8) k/cumm 9.61 RBC (4.50-6.00) m/cumm 4.66 Hgb (13.5-17.5) g/dL 13.9 Hct (40.0-50.0) % 40.8 MCV (80-95) fL 87.6 MCH (27.0-33.0) pg 29.8 MCHC (32.0-36.0) g/dL 34.1 RDW (11.8-14.1) % 12.9 Plt Count (130-400) x1000/uL 231 MPV (8.0-11.0) fL 10.9 Immature Gran % % 0.1 Neutrophils % 53.3 Lymphocytes % 20.8 Monocytes % 8.1 Eosinophils % 16.3 Basophils % 1.4 Absolute Neutrophils (1.2-6.7) k/cumm 5.12 Absolute Lymphocytes (1.2-3.4) k/cumm 2.00 Absolute Monocytes (0.11-0.7) k/cumm 0.78 H Absolute Eosinophils (0.0-0.7) k/cumm 1.57 H Absolute Basophils (0.0-0.2) k/cumm 0.13 Sodium (136-145) mmol/L 138 Potassium (3.5-5.1) mmol/L 4.1 Chloride (98-107) mmol/L 100 Carbon Dioxide (21.0-32.0) mmol/L 32.2 H Anion Gap (3-11) mmol/L 5.8 BUN (7-18) mg/dL 10 Creatinine (0.70-1.30) mg/dL 0.95 Estimated GFR/1.73 m2 (mL/min/1.73m2) >= 60.00 Glucose (74-106) mg/dL 88 Calcium (8.5-10.1) mg/dL 9.1 Total Bilirubin (0.2-1.0) mg/dL 0.3 AST (15-37) U/L 19 ALT (16-63) U/L 24 Alkaline Phosphatase (46-116) U/L 63 Total Protein (6.4-8.2) g/dL 7.6 Albumin (3.4-5.0) g/dL 3.7 <Mike Andrade MD - Last Filed: 01/26/20 22:41> Received signout from Mr. Norton. Please see his note regarding patient's presentation, response to medications and plan of care. Patient improved with normal oxygenation. He subjectively felt better. He is stable and appropriate for discharge to home. HPI <DON Dover - Last Filed: 01/27/20 08:31> General Mode of arrival: ambulatory . Date/Time Provider Initiated Documentation: 01/26/20 21:16 . Limitations to Documentation: no limitations . Information obtained by: patient . HPI Narrative: This is a 24-year-old gentleman who smokes daily presenting reporting a chronic cough over the past 2 months but increasing shortness of breath, wheezing, dry cough over the past 24- 48 hours. He reports that he was given an inhaler during his last ER visit and he is now run out of it in the past 24 hours. He denies fever, productive cough, chest pain, abdominal pain, pain or swelling in his legs. He believes he likely needs another inhaler. He does not currently have a primary care provider. He denies recent travel or sick contacts. Related Data Home Medications Medication Instructions Recorded Confirmed buprenorphine-naloxone [Suboxone] 1 film BUCCAL DAILY 11/02/18 01/26/20 prednisone 60 mg PO DAILY 5 Days #15 tab 01/26/20 Previous Rx's Medication Instructions Recorded prednisone 60 mg PO DAILY 5 Days #15 tab 01/26/20 Allergies Allergy/AdvReac Type Severity Reaction Status Date / Time No Known Drug Allergies Allergy Unverified 01/26/20 21:30 General Stated Complaint: SOB CELESTINO: 2 Review of Systems <DON Dover - Last Filed: 01/27/20 08:31> Constitutional Constitutional: Denies fever(s) ENT Ears, Nose, Mouth, and Throat: Denies sore throat Cardiovascular Cardiovascular: Denies chest pain and Reports dyspnea Respiratory Respiratory: Reports cough and Reports dyspnea Gastrointestinal Gastrointestinal: Denies abdominal pain, Denies nausea and Denies vomiting Musculoskeletal Musculoskeletal: Denies back pain Integumentary/Breasts Skin/Breast: Denies rash PFS <DON Dover - Last Filed: 01/27/20 08:31> Medical History Anxiety (Chronic) Depression 2014 History of opioid abuse (Acute) Pneumonia (Acute) Surgical History No significant past surgical history (Acute) Family History Mother No problems noted. Father Depression on med following divorce Sister No problems noted. Brother No problems noted. Brother No problems noted. Social History Smoking/Tobacco Use Status: Current every day Tobacco Type: cigarettes and e- cigarettes Alcohol Intake: current Alcohol Intake frequency: a few times a week Drug use: Occasionally Substance use type: former substance user, marijuana, crack/cocaine and heroin Details: states he has been using opiods - but cutting back; and marijuana Do you feel safe at home: Yes Do you feel safe in your relationship?: Yes Exam <DON Dover - Last Filed: 01/27/20 08:31> Const General: cooperative, healthy appearing, comfortable and no acute distress Orientation: alert, awake and oriented x3 HENMT Head: normal to inspection, normocephalic and atraumatic Face and sinus: normal facial exam Mouth: moist mucous membranes Throat: posterior oropharynx normal Eyes Conjunctivae: conjunctivae normal Sclera: sclerae normal Neck Neck: normal visual inspection, full ROM, no lymphadenopathy, no meningeal signs, trachea midline, supple and nontender Resp Effort & Inspection: able to speak in complete sentences and tachypneic (Mild) Auscultation: wheezes (Diffusely throughout) Cardio Rate: tachycardic (104) Rhythm: regular rhythm GI Palpation: soft and nontender Back/Spine/Pelvis Back: No back tenderness Skin General skin exam: no rashes or lesions noted Neuro General: patient alert, patient awake, moves all extremities and no focal motor deficits Sensory Exam: no sensory deficits noted Extrem General: normal to inspection, full ROM, capillary refill normal, no pedal edema and no calf tenderness Psych Appearance: grossly normal Mental Status: mental status grossly normal Course <DON Dover - Last Filed: 01/27/20 08:31> Vital Signs Vital signs: Vital Signs Pulse Oximetry 90 L 01/26/20 21:15 Temperature 37.1 C 01/26/20 21:25 Pulse 92 H 01/26/20 21:48 Respiratory Rate 20 01/26/20 21:48 Respiratory Effort Labored 01/26/20 21:32 Respiratory Depth Shallow 01/26/20 21:32 Respiratory Pattern Tachypnea 01/26/20 21:32 Blood Pressure 153/82 H 01/26/20 21:25 Pulse Oximetry 96 01/26/20 21:48 Oxygen Delivery Method Room Air 01/26/20 21:25 Oxygen Flow Rate 0 01/26/20 21:25 Pain Level 7 01/26/20 21:25 Sign Out <DON Dover - Last Filed: 01/27/20 08:31> Sign Out Data: Sign Out Comment: Pending reevaluation and final disposition Last updated by Larry Norton PA at 01/26/20 22:30
--- NOTE | 2020-01-26 22:05 | DI.VRAD_ITS ---
PROCEDURE INFORMATION: Exam: XR Chest, 1 View Exam date and time: 01/26/2020 9:42 PM Age: 24 years old Clinical indication: Cough and shortness of breath; Patient HX: Cough, SOB for a month TECHNIQUE: Imaging protocol: XR of the chest Views: 1 view. COMPARISON: CR XR CHEST 2V PA LATERAL 07/20/2019 8:53 PM FINDINGS: Lungs: Mild peribronchial thickening, likely infectious or inflammatory in etiology. No lobar consolidation. Pleural space: No pleural effusion. No pneumothorax. Heart/Mediastinum: No cardiomegaly. Bones/joints: No acute findings. IMPRESSION: Mild peribronchial thickening, likely infectious or inflammatory in etiology. Dictated and Authenticated by: Rekha Saleh MD. Ordering:GEOVANNA Juarez MD
[2020-01-26 22:16] LABS: ALT 24 U/L (16-63); AST 19 U/L (15-37); Albumin 3.7 g/dL (3.4-5.0); Alkaline Phosphatase 63 U/L (46-116); Anion Gap 5.8 mmol/L (3-11); BUN 10 mg/dL (7-18); Bilirubin, Total 0.3 mg/dL (0.2-1.0); CO2 32.2 mmol/L (21.0-32.0); CREATININE 0.95 mg/dL (0.70-1.30); Calcium 9.1 mg/dL (8.5-10.1); Chloride 100 mmol/L (98-107); Glucose 88 mg/dL (74-106); Potassium 4.1 mmol/L (3.5-5.1); Sodium 138 mmol/L (136-145); Total Protein 7.6 g/dL (6.4-8.2)
[2020-01-26] MEDS: Albuterol HFA 8 GM 60 PUFF INH IH (22:57)
--- NOTE | 2020-01-27 10:26 | PDOC.ERCMPRO ---
- If Service Date Differs Date of service: 01/27/20 Time of Service: 10:26 Care Management Progress Note At the ED provider's request, CM coordinates a referral to Dr. Carrie Jimenez (teledoc) of [facility] to assist patient in establishing care with a PCP. Alfredo is seen in the ED on 01/26/2020 for bronchitis.
== END 2020-01-26 22:55 | disposition home or self-care (01) ==
PROVIDERS: Physician Assistant; Emergency Provider Emergency Medicine; PCP Pediatrics
DX: J20.8 Acute bronchitis due to other specified organisms (principal); R05 Cough; F17.210 Nicotine dependence, cigarettes, uncomplicated; Z87.01 Personal history of pneumonia (recurrent)
CPT/HCPCS: 36415; 80053; 94640; 96374; 99284; 71045; 85025; J2930; J7613; J7620

== ENCOUNTER 2020-01-27 08:33 | Outpatient (CLI) | payer MEDICAID, SELFPAY ==
[2020-01-30 03:09] LABS: SARS-CoV-2 RNA Undetected (Undetected); SARS-CoV-2 Specimen Source Nasopharynx
== END 2020-01-27 08:53 ==
PROVIDERS: PCP Pediatrics; Visit Provider Physician Assistant
DX: Z11.59 Encounter for screening for other viral diseases (principal)
CPT/HCPCS: U0003

== ENCOUNTER 2020-02-20 18:11 | Emergency (ER) | payer MEDICAID, SELFPAY ==
[2020-02-20 18:17] VITALS: BP 124/83; PULSE 83; RESP 20; TEMP 36.5; O2SAT 97
[2020-02-20 18:21] VITALS: RESP 20
--- NOTE | 2020-02-20 18:23 | W.ED.GENAD ---
Discharge Plan Disposition Patient Disposition: HOME Condition: Improving Discharge Details Chief Complaint: SOB Clinical Impression: Diffuse wheezing, Breath shortness Primary Care Provider: Miguelina Cox V ED Provider: Adeola Caal Home Meds and New Rx's Prescriptions: New prednisone 50 mg tablet 50 mg PO DAILY Qty: 4 RF: 0 albuterol sulfate 90 mcg/actuation HFA aerosol inhaler 2 puff IH Q6H PRNQty: 6.7 RF: 2 Discharge Instructions Instructions: Wheezing (ED) Additional Instructions: Continue to cut back on smoking. This is likely the cause of your recurrent wheezing and shortness of breath. I have placed a referral for primary care and would like you to be reevaluated next week. However, if you develop symptoms in the interim such as increased shortness of breath with breathing or other new/worsening symptoms to seek care urgently once again. Please take the steroids as prescribed. You are given your dosing for tonight, next dose to be due tomorrow. You may use the albuterol as needed and as prescribed. Referral for outpatient pulmonary function testing will also be placed. Medical Decision Making Patient is a pleasant 24-year-old gentleman presented with chief complaint of wheezing and shortness of breath. This is his third visit for this in the past few months. Has had an extensive work-up from the other times and does state this feels very similar. He denies any fevers or chills. States that he has had a cough. Reports that this is been going on for the past 5 days. He has been finding his inhaler quite useful but has since run out of this. Patient is working on cutting back on marijuana and cigarettes as these seem to be exacerbating factors for his cough and wheezing. He denies any pleuritic pain. No fevers. States he has had a small amount of phlegm production but this is been quite minor. No hemoptysis. Denies any GI upset. No recent travel. No known sick contacts. Patient is currently unemployed so no environmental exposures that he is aware of. He does state that heat seems to be an exacerbating factor for his shortness of breath continues to recur. On exam, he is resting comfortably. His vital signs are stable. He appears nontoxic. Speaking in full sentences with no evidence of respiratory distress. He does have diffuse wheezing noted on exam. No crackles are noted. No crepitus. Does appear well-hydrated. Patient given albuterol inhaler while here, patient reports feeling improved. Will obtain chest x-ray. I would like for the patient to have close follow-up with primary care. His history is most concerning for recurrent inflammatory process such as asthma. Plan to treat with steroids. However, I would like for him to be able to discuss more chronic management of this issue. I did encourage smoking cessation. At this point, do not see any evidence to suggest infection although we will look for this further with chest x-ray. You this point, do not see evidence to suggest ACS, PE. History and exam is more consistent with asthma, bronchitis, potential infectious etiology. FINDINGS: Lungs: There is mild hyperinflation. No focal consolidation. Pleural space: No pleural effusion. No pneumothorax. Heart/Mediastinum: The heart and mediastinum are stable in appearance. Bones/joints: No acute osseous abnormality. IMPRESSION: No acute cardiopulmonary disease. Patient is doing much improved after steroids and inhaled albuterol. I discussed the findings of the chest x-ray with the patient. Will refer for PFTs to be completed once his current illness has subsided. Encourage water intake. Encourage close follow-up with primary care. We have rechecked care management will ensure that he has follow-up next week. Patient was given strict return precautions. All of his questions and concerns were addressed and is agreement this plan. HPI General Mode of arrival: ambulatory. Date/Time Provider Initiated Documentation: 02/20/20 18:23. Limitations to Documentation: no limitations. Information obtained by: patient, RN notes reviewed and old records reviewed. History of Present Illness 24 year old M presents to the emergency department with the chief complaint of wheezing, cough, SOB, described as moderate and similar to prior episodes, Quality is described as other (no pain), Patient started experiencing this day(s) (5) and it has been constant. No relieving factors improve symptom(s), Other factors that worsen symptoms (smoking) . Patient notes cough and shortness of breath; denies chest pain, diaphoresis, fever/chills, loss of appetite, nausea/vomiting, rash, syncope and weakness. Patient did receive the following treatments prior to arrival, none (ran out of inhaler) Related Data Home Medications Medication Instructions Recorded Confirmed albuterol sulfate 2 puff IH Q6H PRN #6.7 gm 02/20/20 prednisone 50 mg PO DAILY #4 tab 02/20/20 Previous Rx's Medication Instructions Recorded albuterol sulfate 2 puff IH Q6H PRN #6.7 gm 02/20/20 prednisone 50 mg PO DAILY #4 tab 02/20/20 Allergies Allergy/AdvReac Type Severity Reaction Status Date / Time No Known Drug Allergies Allergy Unverified 02/20/20 18:21 General Stated Complaint: SOB CELESTINO: 3 Review of Systems Constitutional Constitutional: Reports as per HPI, Denies chills, Denies fever(s), Denies headache(s) and Denies lethargy Eyes Eyes: Reports as per HPI, Denies eye discharge and Denies irritation ENT Ears, Nose, Mouth, and Throat: Reports as per HPI and Denies headache(s) Cardiovascular Cardiovascular: Reports as per HPI, Denies chest pain, Denies chest pain at rest, Denies chest pain with activity, Denies edema, Denies radiating jaw, neck or arm pain and Reports dyspnea Respiratory Respiratory: Reports as per HPI, Denies chest congestion, Reports cough, Denies hemoptysis, Denies excessive phlegm production, Denies pain on inspiration, Denies pain with cough, Reports dyspnea, Denies stridor and Reports wheezing Gastrointestinal Gastrointestinal: Reports as per HPI, Denies abdominal pain, Denies change in bowel habits, Denies nausea and Denies vomiting Integumentary/Breasts Skin/Breast: Reports as per HPI and Denies rash Neurologic Neurologic: Reports as per HPI and Denies headache(s) Allergic/Immunologic Allergic/Immunologic: Reports wheezing PFSH Surgical History No significant past surgical history (Acute) Social History Smoking/Tobacco Use Status: Current every day Tobacco Type: cigarettes and e-cigarettes Alcohol Intake: current Alcohol Intake frequency: a few times a week Drug use: Occasionally Substance use type: former substance user, marijuana, crack/cocaine and heroin Details: states he has been using opiods - but cutting back; and marijuana Do you feel safe at home: Yes Do you feel safe in your relationship?: Yes Exam Const General: cooperative, healthy appearing, comfortable, no acute distress, well developed and well groomed Nutritional Appearance: average body habitus and well nourished Orientation: alert and awake [facility] Head: normal to inspection, normocephalic and atraumatic Ears: hearing grossly normal bilaterally General nose exam: external nose normal and nares normal Face and sinus: normal facial exam, sinuses nontender and face symmetric Mouth: oral mucosae normal, lip normal, tongue normal, oropharynx normal and moist mucous membranes Teeth and gingiva: dentition normal Throat: posterior oropharynx normal, tonsils normal and uvula midline Eyes General: appearance normal, both eyes and all related structures Neck Neck: normal visual inspection, full ROM, no lymphadenopathy and no meningeal signs Resp Effort & Inspection: normal respiratory effort, able to speak in complete sentences and no respiratory distress Auscultation: no crackles, no rales, no rhonchi and wheezes (diffuse wheezing) Cardio Rate: regular rate Rhythm: regular rhythm Heart Sounds: S1 normal and S2 normal Skin General skin exam: no rashes or lesions noted Neuro General: patient alert and patient awake Cognition: normal cognition Speech: speech normal Gait: normal gait Extrem General: normal to inspection, capillary refill normal, no pedal edema, no calf tenderness and normal gait Psych Appearance: grossly normal and well kempt Mental Status: mental status grossly normal Speech and Movement: speech and movement normal Course Vital Signs Vital signs: Vital Signs Temperature 36.5 C 02/20/20 18:17 Pulse 83 02/20/20 18:17 Respiratory Rate 02/20/20 18:17 Blood Pressure 124/83 02/20/20 18:17 Pulse Oximetry 97 02/20/20 18:17 Temperature 36.5 C 02/20/20 18:17 Temperature Source Skin 02/20/20 18:17 Pulse 83 02/20/20 18:17 Respiratory Rate 02/20/20 18:17 Blood Pressure 124/83 02/20/20 18:17 Blood Pressure Position Sitting 02/20/20 18:17 Pulse Oximetry 97 02/20/20 18:17 Oxygen Delivery Method Room Air 02/20/20 18:17 Oxygen Flow Rate 0 02/20/20 18:17 Pain Level 5 02/20/20 18:17
[2020-02-20] MEDS: Albuterol HFA 8 GM 60 PUFF INH IH (18:30)
--- NOTE | 2020-02-20 18:46 | NUR.NOTE ---
Nursing Note:Referral to care management in inbox
[2020-02-20] MEDS: predniSONE 20 MG TAB 60 MG PO (18:49)
--- NOTE | 2020-02-20 19:09 | DI.RAD_ITS ---
EXAM: XR PORTABLE CHEST AP CLINICAL HISTORY: SOB, diffuse wheezing TECHNIQUE: 2D digital imaging was performed. COMPARISON: CR CHEST 2 VIEWS PA,LAT from 01/19/2018 CR,XR XR CHEST 2V PA LATERAL from 07/20/2019 CR,XR XR PORTABLE CHEST AP from 01/26/2020 FINDINGS: MEDIASTINUM: Normal. HEART: Normal. PULMONARY VASCULATURE: Normal. LUNGS: There is a new opacity seen in the left lung base medially which may reflect a developing infi ltrate. PLEURAL SPACE: No pleural effusion or pneumothorax. BONE:Within normal limits for the patient's age. OTHER FINDINGS:Normal. IMPRESSION: Opacity in the left lung base medially not present on prior examinations which may represent a develo ping infiltrate. Please correlate clinically. DATA REPOSITORY: RADIATION DOSE DELIVERED:
--- NOTE | 2020-02-20 19:25 | DI.VRAD_ITS ---
PROCEDURE INFORMATION: Exam: XR Chest, 1 View Exam date and time: 02/20/2020 6:44 PM Age: 24 years old Clinical indication: Shortness of breath TECHNIQUE: Imaging protocol: XR of the chest Views: 1 view. COMPARISON: CR XR PORTABLE CHEST AP 01/26/2020 9:33 PM FINDINGS: Lungs: There is mild hyperinflation. No focal consolidation. Pleural space: No pleural effusion. No pneumothorax. Heart/Mediastinum: The heart and mediastinum are stable in appearance. Bones/joints: No acute osseous abnormality. IMPRESSION: No acute cardiopulmonary disease. Dictated and Authenticated by: Soto Sanderson MD. Ordering:MEGGAN Mir MD
[2020-02-20 19:48] VITALS: BP 120/49; PULSE 88; RESP 18; TEMP 36.4; O2SAT 96
[2020-02-25 05:44] LABS: SARS-CoV-2 RNA Undetected (Undetected); SARS-CoV-2 Specimen Source Nasopharynx
--- NOTE | 2020-02-25 08:10 | NUR.NOTE ---
Nursing Note: 02/25/20 at 0809--result given
== END 2020-02-20 19:50 | disposition home or self-care (01) ==
PROVIDERS: Emergency Provider Physician Assistant; PCP Pediatrics
DX: R06.02 Shortness of breath (principal); R05 Cough; Z11.59 Encounter for screening for other viral diseases; F11.10 Opioid abuse, uncomplicated; F17.210 Nicotine dependence, cigarettes, uncomplicated; F12.10 Cannabis abuse, uncomplicated
CPT/HCPCS: 99283; U0003; 71045; J7512

== ENCOUNTER 2020-03-02 08:26 | Emergency (ER) | payer MEDICAID, SELFPAY ==
[2020-03-02] VITALS (19 sets, daily range): BP systolic 100–151; BP diastolic 56–94; PULSE 65–111; RESP 1–24; TEMP 36.2–36.6; O2SAT 92–99
--- NOTE | 2020-03-02 08:32 | W.ED.GENAD ---
Discharge Plan Disposition Patient Disposition: HOME Condition: Stable Discharge Details Chief Complaint: SOB Clinical Impression: Diffuse wheezing Primary Care Provider: Miguelina Cox V ED Provider: Willy Lane Home Meds and New Rx's Prescriptions: New prednisone 20 mg tablet 60 mg PO DAILY 4 Days Qty: 12 RF: 0 Continued albuterol sulfate 90 mcg/actuation HFA aerosol inhaler 2 puff IH Q6H PRNQty: 6.7 RF: 2 Discharge Instructions Instructions: Wheezing (ED) Additional Instructions: call [facility] today for an appointment if you feel more ill, have worsening shortness of breath return to the emergency department Referrals: Carrie Jimenez MD [ [facility] STAFF PHYSICIAN] - Medical Decision Making 24 yo male with hx of smoking and recurrent wheezing, hasn't had formal pft testing arrives with shortness of breath for a day slowly worsening and is out of inhaler. He denies fevers, chest pain, cough. Arrives with diffuse wheezing in all lung parks consistent with reactive airway disease and speaking in 4-5 word sentences. No jvd, no calf pain, no leg swelling, no findings on exam and history to suggest acs, chf, PE or pna and exam and hsitory consistent with likely undiagnosed asthma. Will treat with steroids, duoneb and reassess. pt feels much better speaking in full sentences and only has mild apical wheezing bilaterally and he is requesting d/c which I feel is reasonable. Will place on child adolescent care's list to try and get established again with pcp, return precautions given Differential Diagnosis Differential Diagnosis: asthma, bronchitis HPI General Mode of arrival: ambulatory. Date/Time Provider Initiated Documentation: 03/02/20 08:27. Limitations to Documentation: no limitations. Information obtained by: patient. History of Present Illness 24 year old M presents to the emergency department with the chief complaint of shortness of breath, described as moderate, Patient started experiencing this day(s) (1) and it has been constant. No relieving factors improve symptom(s), No exacerbating factors reported . Patient notes shortness of breath; denies cough and fever/chills. Patient did receive the following treatments prior to arrival, none Related Data Home Medications Medication Instructions Recorded Confirmed albuterol sulfate 2 puff IH Q6H PRN #6.7 gm 03/02/20 prednisone 60 mg PO DAILY 4 Days #12 tab 03/02/20 Previous Rx's Medication Instructions Recorded albuterol sulfate 2 puff IH Q6H PRN #6.7 gm 03/02/20 prednisone 60 mg PO DAILY 4 Days #12 tab 03/02/20 Allergies Allergy/AdvReac Type Severity Reaction Status Date / Time No Known Drug Allergies Allergy Unverified 02/20/20 18:21 General CELESTINO: 3 Review of Systems All systems reviewed & are unremarkable except as noted in HPI and below Constitutional Constitutional: Denies chills, Denies fever(s) and Denies weakness Cardiovascular Cardiovascular: Denies chest pain Respiratory Respiratory: Denies cough Gastrointestinal Gastrointestinal: Denies abdominal pain, Denies nausea and Denies vomiting Musculoskeletal Musculoskeletal: Denies joint swelling Neurologic Neurologic: Denies weakness Psychiatric Psychiatric: Denies depression [facility] Medical History (Updated 03/02/20 @ 09:[address] MD) Anxiety (Chronic) Depression 2013 History of opioid abuse (Acute) Pneumonia (Acute) Surgical History No significant past surgical history (Acute) Family History Mother No problems noted. Father Depression on med following divorce Sister No problems noted. Brother No problems noted. Brother No problems noted. Social History Smoking/Tobacco Use Status: Former Tobacco Use Alcohol Intake: current Alcohol Intake frequency: a few times a week Drug use: Occasionally Substance use type: former substance user, marijuana, crack/cocaine and heroin Details: states he has been using opiods - but cutting back; and marijuana Do you feel safe at home: Yes Do you feel safe in your relationship?: Yes Exam Const General: no acute distress Orientation: alert [facility] Head: normal to inspection Ears: external ears normal General nose exam: external nose normal Mouth: moist mucous membranes Eyes General: appearance normal, both eyes and all related structures Neck Neck: normal visual inspection Resp Effort & Inspection: audible wheezes and prolonged expiratory phase Cardio Rate: regular rate Skin General skin exam: no rashes or lesions noted Neuro General: patient alert and patient oriented x3 Extrem General: normal to inspection Psych Mental Status: mental status grossly normal
[2020-03-02] MEDS: Albuterol/Ipratropium 3 ML UPD VIAL UPD ×2 (08:37→08:44)
[2020-03-02] MEDS: predniSONE 20 MG TAB 60 MG PO (08:41)
[2020-03-02] MEDS: Albuterol/Ipratropium 3 ML UPD VIAL (09:13)
== END 2020-03-02 09:45 | disposition home or self-care (01) ==
PROVIDERS: Emergency Provider Emergency Medicine; PCP Pediatrics
DX: J45.909 Unspecified asthma, uncomplicated (principal); Z87.891 Personal history of nicotine dependence
CPT/HCPCS: 94640; 99284; J7512; J7620